=== PATIENT | female | born 1955 | race Caucasian/White ===

== ENCOUNTER → 2018-12-12 | Outpatient (CLI) | payer BC ==
--- NOTE | 2018-12-12 18:54 | CONS ---
Date/Time of Note Date/Time of Note DATE: 12/12/18 TIME: 18:48 Assessment/Plan Assessment/Plan Hospital Course This is a 63-year-old female with osteoarthritis of the left knee. Most of her pain is posterior. 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 Patient has not exhausted conservative treatment at this time. Plan: Steroid injection left knee Physical therapy Patient to ask PCP if NSAIDs are okay given her hypertension and GERD Weight loss Low impact activities Follow-up 12 weeks Assessment/Plan Left knee steroid injection procedure: Risks and benefits of steroid injection reviewed with patient. The risks include infection, failure, pain, swelling, nerve/tendon/ligament damage. The patient verbalized understanding and verbal consent was obtained prior to procedure. The left knee was prepped in a sterile fashion with alcohol and betadine the site of injection was confirmed. Lateral approach was used. The skin and capsule was anesthetized with 3mL 1% lidocaine. The left knee was injected with 2mL 1% lidocaine, 2mL 0.25% bupivacaine, 40mg Depo-Medrol. Injection flowed freely. Good hemostasis was achieved and no complications noted. The patient tolerated the procedure well. Limit activity and ice for 24-48 hours Consultation Date/Type/Reason Admit Date/Time Date of Consultation: Dec 12, 2018 Reason for Consultation Left knee pain Hx of Present Illness Is a 63-year-old female with a chief complaint of left knee pain. The pain began approximately October 2018 ago. The patients pain is in the posterior aspect of the left knee. Pain is not radiating to the lower leg. The pain is rated as a 9/10. Patient denies complaints of numbness or tingling. The pain is exacerbated by climbing stairs and ambulation. Pain is not relieved by NSAID's. Patient has been taking tramadol on a p.r.n. basis as well as using ice. Duration: Worse in the last 3 weeks. However she has been having some difficulty at least a year and left knee Injury: No Walking tolerance: 0 blocks Limp: Yes Support: No Swelling: No Crepitation: Yes Instability: No Stairs: Uses banister Physical Therapy: No Injections: No NSAIDs: Ibuprofen as needed Prior surgery: No Back pain: No Hip pain: No Risk of AVN : No Past Medical History Hypertension Depression Anxiety Seasonal allergies menopause Asthma GERD Insomnia Headaches Past Surgical History Past Surgical Hx: noncontributory Family History Significant Family History: no pertinent family hx Social History Alcohol Use: rarely Smoking Status: Never smoker Drug Use: none 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 No Acute Distress. Heart: Regular rate and rhythm. Lungs: No respiratory distress. No accessory muscle use. Musculoskeletal: Left Knee This is a well developed obese female who is alert, oriented times three and in no apparent distress. Skin is intact over the left knee as well as the lower extremity with no abrasions, lacerations, or ulcerations. Observation of the patient's gait reveals an antalgic gait with Varus thrust. Frontal plane alignment is varus. There is pain on palpation of medial joint line. The patient demonstrates grinding anteriorly with ROM. Range of motion: 5 extension to approximately 120 degrees of flexion. Collateral ligament testing reveals no instability with varus or valgus stress at 0 and 30 degrees of flexion. Negative Blanca's and negative posterior drawer. Neurovascularly intact with 5/5 EHL/tibialis anterior/gastroc. Sensation intact to light touch in a sural, saphenous, deep peroneal, superficial peroneal, medial and lateral plantar nerve distribution. Palpable, symmetric dorsalis pedis and posterior tibial pulses in both lower extremities. Hip examination normal. Imaging Imaging The patient received a standard set of films today that were personally r eviewed. Imaging included a standing bilateral knee AP, PA flexion, merchant views and a dedicated lateral of the affected knee: There is varus alignment of the knee. There is significant loss of joint space medial compartment with some loss in the lateral and patellofemoral. There is osteophyte formation. There is subchondral sclerosis. There are subchondral cysts. Degenerative changes are most severe in the medial compartment(s) RUBIO SAMUELS MD Dec 12, 2018 18:54
--- NOTE | 2018-12-13 10:19 | RADRPT ---
PROCEDURE: Bilateral knee series CLINICAL INDICATION: Pain TECHNIQUE: AP weightbearing, PA axial weightbearing, lateral and sunrise views were obtained of the right left knees. COMPARISON: None FINDINGS: Moderate to severe tricompartment degenerate joint disease of both knees worse involving the medial c ompartments bilaterally and worse on the left. No acute fractures or dislocations. No focal bony deepika tic or lytic lesions. No evidence of right or left knee joint effusions. Soft tissues are unremarkabl e. IMPRESSION: 1. Moderate to severe degenerate joint disease of both knees worse on the left without acute fractur es dislocations or joint effusion. RPTAT:AAJJ Physician Jessica Date Time Electronically viewed and signed by Willa Parks Physician on 12/13/2018 10:19 /
== END | disposition home or self-care (01) ==
LOC: HKI 15:15
PROVIDERS: ATTEND Orthopaedic Surgery Adult Reconstructive Orthopaedic Surgery
DX: M25.562 Pain in left knee (principal)
CPT/HCPCS: 20610; 73564; G0463